=== PATIENT | female | born 1995 | race Caucasian/White ===

== ENCOUNTER 2020-09-07 05:44 | Inpatient (IN) | payer OTHER ==
[~2020-09-07] VITALS: Ht 167.6 cm; Wt 95.7 kg
[~2020-09-07 05:44] MED LIST: CLARITIN10 MG PO; COLACE 100MG C100 MG PO; LORTAB 5-325 M1 EACH PO; PRENATAL COMPL1 EACH PO
[2020-09-07] MEDS ORDERED: COLACE 100MG C100 MG PO (07:54)
[2020-09-07] MEDS ORDERED: HYDROCODON-ACE1 EAC4 PO (07:54)
[2020-09-07] MEDS ORDERED: PRENATAL VITAM1 EAC3 PO (10:01)
[2020-09-07] MEDS ORDERED: COLACE100 MG PO (10:02)
[2020-09-07] MEDS ORDERED: CLARITIN10 MG PO (10:02)
[2020-09-08 07:11] LABS: HEMOGLOBIN 11.4 gm/dl (12.3-15.3)
== END 2020-09-08 17:01 | disposition home or self-care (01) | DRG 788 ==
LOC: OB 05:44
PROVIDERS: ADMIT Obstetrics & Gynecology
PROC: 6A550ZT Pheresis of Cord Blood Stem Cells, Single (ICD-10-PCS; 2020-09-07)
PROC: 3E0234Z Introduction of Serum, Toxoid and Vaccine into Muscle, Percutaneous Approach (ICD-10-PCS; 2020-09-07)
PROC: 10D00Z1 Extraction of Products of Conception, Low, Open Approach (ICD-10-PCS; principal; 2020-09-07 08:10)
PROC: 3E02340 Introduction of Influenza Vaccine into Muscle, Percutaneous Approach (ICD-10-PCS; 2020-09-08)
DX: O36.63X0 Maternal care for excessive fetal growth, third trimester, not applicable or unspecified (principal); Z3A.39 39 weeks gestation of pregnancy; Z37.0 Single live birth; O34.211 Maternal care for low transverse scar from previous cesarean delivery; N85.8 Other specified noninflammatory disorders of uterus; Z23 Encounter for immunization; O99.214 Obesity complicating childbirth; O75.89 Other specified complications of labor and delivery; K59.00 Constipation, unspecified
CPT/HCPCS: 36415; 81001; 82800; 85014; 85018; 85025; 90472; 90686; 90715; C9113; G0008; J0690; J1170; J2274; J2370; J2405; J2590; J3010; J7120